=== PATIENT | male | born 1970 | race Caucasian/White ===

== ENCOUNTER 2017-07-03 11:58 | Observation (INO) | payer SELFPAY ==
[2017-07-03 12:29] LABS: #Eosinphils 0.1 thou/uL (0.0-0.7); #Lymphocytes 0.8 thou/uL (1.20-3.40); #Monocytes 0.5 thou/uL (0.11-0.59); #Neutrophils 10.6 thou/uL (1.40-6.50); %Basophils 0.2 % (0.0-1.0); %Eosinophils 1.2 % (0.0-10.0); %Lymphocytes 6.5 % (21.0-51.0); %Monocytes 3.9 % (0.0-10.0); Hematocrit 50.1 % (42.0-52.0); Mean Platelet Volume 6.8 fL (7.4-10.4); Red Blood Cell (RBC) Count 5.33 mill/uL (4.70-6.10); White Blood Cell (WBC) Count 12.1 thou/uL (4.8-10.8)
[2017-07-03 12:55] LABS: ALT (SGPT) 81 U/L (8-55); AST (SGOT) 39 U/L (5-34); Alkaline Phosphatase 103 U/L (40-150); Anion Gap 12 mmol/L (10-20); BUN (Urea Nitrogen) 19 mg/dL (8.9-20.6); Bilirubin, Total 0.8 mg/dL (0.2-1.2); CK (CPK) 73 U/L (30-200); Calc. Creatinine Clearance 0 mL/min (70-130); Calcium 9.6 mg/dL (7.8-10.44); Carbon Dioxide 26 mmol/L (22-29); Chloride 101 mmol/L (98-107); Estimated GFR-MDRD 82; Lipase 113 U/L (8-78); Protein, Total 7.4 g/dL (6.0-8.3)
[2017-07-03 12:57] LABS: Troponin I Less than 0.010 ng/mL (< 0.028)
--- NOTE | 2017-07-03 13:42 | RAD ---
PORTABLE AP CHEST: Date: 07-03-17 History: Chest pain. Comparison: 08-16-12 FINDINGS: Cardiac silhouette and pulmonary vasculature are within normal limits for the portable technique of the study. Again noted are calcified bilateral hilar and mediastinal lymph nodes. Lungs are clear. T here has been no interval change from the prior study. IMPRESSION: No acute cardiopulmonary process. POS: [facility]
--- NOTE | 2017-07-03 16:42 | CT ---
CT ANGIOGRAM CHEST WITH CONTRAST: 07/03/17 HISTORY: Chest pain. COMPARISON: CTA chest 01/17/17. TECHNIQUE: CT angiogram chest performed after the intravenous administration of contrast with 3D rendering prov ided. FINDINGS: The majority of the left lower lobe and lingular left upper lobe embolism have been resorbed. No new segmental pulmonary arterial filling defect. No adenopathy in the chest. Heart size is upper limits of normal. There are coronary artery calcific ations. There are numerous right paratracheal and right hilar calcified lymph nodes. There is a posterior diaphragmatic fat containing hernia. Aortic contour is normal. Skeleton is unremarkable. There is a calcified granuloma in the right middle lobe. There are atelect atic changes in the lung bases. IMPRESSION: 1. Interval resorption of the previously described left sided pulmonary emboli. 2. No new superimposed acute pulmonary embolism. 3. No evidence for pneumonia. POS: [facility]
[2017-07-03] MEDS ORDERED: Nitroglycerin 2% Ointment 1 INCH/1 GM Packet ONE (16:46)
[2017-07-03] MEDS ORDERED: Nitroglycerin 0.4 MG TAB (25 Tab Bottle) ONE (16:46)
--- NOTE | 2017-07-03 16:48 | ULT ---
BILATERAL LOWER EXTREMITY VENOUS DUPLEX ULTRASOUND INCLUDING COLOR AND SPECTRAL DOPPLER IMAGIN07/03/17 HISTORY: 46-year-old male with chest pain as well as pain when walking with a past history of pulmonary embol us as well as deep venous thrombosis. Bilateral lower extremity venous duplex ultrasound examination including color and spectral doppler imaging is performed. Exam performed from groin to ankle including visualized greater saphenous, common femoral, superfici al femoral, profunda femoral, popliteal, trifurcation, and posterior tibial vein regions. Phasic alfredito w noted at all levels with normal compressibility and normal augmentation. No intraluminal thrombus. IMPRESSION: No evidence for deep venous thrombosis. POS: [facility]
[2017-07-03 17:31] LABS: Troponin I 0.012 ng/mL (< 0.028)
[2017-07-03] MEDS ORDERED: Ondansetron ODT 4 MG TAB SL PRN (17:54)
[2017-07-03] MEDS ORDERED: Acetaminophen 325 MG TAB PO PRN ×2 (17:54→19:48)
[2017-07-03] MEDS ORDERED: Ondansetron HCl/PF 4 MG/2 ML Vial IVP PRN ×2 (17:54→19:48)
[2017-07-03 18:30] VITALS: BMI 23.7
[2017-07-03] MEDS ORDERED: Guaifenesin DM 100-10/5 ML UDCUP PO PRN (19:48)
[2017-07-03] MEDS ORDERED: Mag-Al 1200 mg/1200 mg/30 ML UDCUP PO PRN (19:48)
[2017-07-03] MEDS ORDERED: Ibuprofen 200 MG TAB PO PRN (19:48)
[2017-07-03] MEDS: Sodium Chloride 0.9% 1,000 ML IV SCH (20:48)
[2017-07-03] MEDS: Famotidine 20 MG TAB PO SCH (20:49)
[2017-07-03 20:51] LABS: Acetaminophen Less than 6.0 mcg/mL (10.0-30.0); Salicylate Less than 8.0 mg/dL (15.0-30.0)
[2017-07-03 20:55] LABS: Troponin I Less than 0.010 ng/mL (< 0.028)
[2017-07-03] MEDS ORDERED: Nicotine 14 MG PATCH TD SCH (21:00)
--- NOTE | 2017-07-03 22:45 | HP ---
REASON FOR ADMISSION: Likely viral syndrome, possible pancreatitis. HISTORY OF PRESENTING ILLNESS: The patient gives history of having generalized body aches. He also developed nausea and vomiting. He could barely get up this afternoon. He also mentions that he had contact with 3 other family members who have had stomach flu in the house. No cough or fever. He has had some soreness in his chest as well, but no pain as such. No complaints of palpitations, PND or orthopnea. Here in the ER, he has had a CT angio of the chest and ultrasound venous Doppler of the lower extremities done, all of which have been negative for DVT. The patient had a recent history of PE and DVT. He has been off Coumadin from the last 30 days due to financial constraints. PAST MEDICAL AND SURGICAL HISTORY: History of DVT and PE, prior history of kidney stones, tobacco abuse, history of alcohol abuse and history of pancreatitis in the past. CURRENT MEDICATIONS: None. ALLERGIES: No known drug allergies. PERSONAL HISTORY: Patient states he has come down to 2-3 cigarettes a day. Denies alcohol or drugs. Lives with his girlfriend. FAMILY HISTORY: Mom of cancer when he was 3 years old. Has an aunt who had coronary artery disease. Grandparents have had history of coronary artery disease as well. He does not know much about his father. REVIEW OF SYSTEMS: The following complete review of systems was negative, unless otherwise mentioned in the HPI or below: Constitutional: Weight loss or gain, ability to conduct usual activities. Skin: Rash, itching. Eyes: Double vision, pain. ENT/Mouth: Nose bleeding, neck stiffness, pain, tenderness. Cardiovascular: Palpitations, dyspnea on exertion, orthopnea. Respiratory: Shortness of breath, wheezing, cough, hemoptysis, fever or night sweats. Gastrointestinal: Poor appetite, abdominal pain, heartburn, nausea, vomiting, constipation, or diarrhea. Genitourinary: Urgency, frequency, dysuria, nocturia. Musculoskeletal: Pain, swelling. Neurologic/Psychiatric: Anxiety, depression. Allergy/Immunologic: Skin rash, bleeding tendency. PHYSICAL EXAMINATION: GENERAL: The patient is a 46-year-old male who is currently not in any acute distress. VITAL SIGNS: Blood pressure 140/86, pulse 80 per minute, respiratory rate 20 per minute, temperature 97.2 degrees Fahrenheit and saturating 97% on room air. NECK: Supple. No elevated JVD. HEENT: Eyes; extraocular muscles intact. Pupils reacting to light. Oral cavity mucous membranes are moist. No exudates or congestion. CARDIOVASCULAR SYSTEM: S1 and S2 heard. Regular rhythm. RESPIRATORY SYSTEM: Air entry 1+ bilaterally. No rales or rhonchi. ABDOMEN: Soft, bowel sounds heard. No tenderness, rigidity or guarding. EXTREMITIES: No peripheral edema or calf tenderness. VASCULAR SYSTEM: Peripheral pulses 2+ bilateral. No ischemic ulcerations or gangrene. CENTRAL NERVOUS SYSTEM: No gross focal deficit seen. Patient is alert, awake and oriented x3. PSYCHIATRIC SYSTEM: The patient's mood is euthymic. No hallucinations or delusions. LABORATORY AND IMAGING DATA: White count of 12, hemoglobin and hematocrit 16 and 50, platelet count 228 with 88% neutrophils. D-dimer was 0.4. Electrolytes are fairly stable. BUN 19, creatinine 0.9, glucose 130, AST 39, ALT 81, alkaline phosphatase 103, total bilirubin 0.8, albumin is 4.4 and lipase is 113. Troponin x2 is negative. CT angio chest shows interval resorption of previously described left-sided pulmonary emboli, no evidence of pneumonia seen. Ultrasound venous Doppler of both lower extremities done shows no evidence of DVT. EKG done shows normal sinus rhythm at 76 beats per minute. CLINICAL IMPRESSION AND PLAN: The patient will be under observation on telemetry for what appears to be a viral syndrome. The patient has had prior urine drug screens being positive for amphetamine and methamphetamine, although he denies it at present. We will obtain a urine drug screen for now. He will be gently hydrated with normal saline at 100 mL per hour. He will be on aspirin 81 mg and Motrin p.r.n. for pain. Empiric Levaquin in view of a WBC of 12 with 88% neutrophils, although there is no clear source for bacterial infection as such. We will obtain a viral PCR as well. We will await further lab work. If patient is comfortable, he can be discharged anytime. IVIS
[2017-07-04 04:16] LABS: #Eosinphils 0.1 thou/uL (0.0-0.7); #Lymphocytes 1.7 thou/uL (1.20-3.40); #Monocytes 0.5 thou/uL (0.11-0.59); #Neutrophils 4.3 thou/uL (1.40-6.50); %Basophils 0.2 % (0.0-1.0); %Eosinophils 1.6 % (0.0-10.0); %Lymphocytes 25.7 % (21.0-51.0); %Monocytes 7.3 % (0.0-10.0); Mean Platelet Volume 6.9 fL (7.4-10.4); Red Blood Cell (RBC) Count 4.67 mill/uL (4.70-6.10); White Blood Cell (WBC) Count 6.6 thou/uL (4.8-10.8)
[2017-07-04 04:42] LABS: ALT (SGPT) 51 U/L (8-55); AST (SGOT) 21 U/L (5-34); Alkaline Phosphatase 82 U/L (40-150); Anion Gap 10 mmol/L (10-20); BUN (Urea Nitrogen) 15 mg/dL (8.9-20.6); Bilirubin, Total 0.6 mg/dL (0.2-1.2); Calc. Creatinine Clearance 100 mL/min (70-130); Calcium 8.6 mg/dL (7.8-10.44); Carbon Dioxide 26 mmol/L (22-29); Chloride 104 mmol/L (98-107); Estimated GFR-MDRD 78; Globulin 2.5 g/dL (2.4-3.5); Protein, Total 6.1 g/dL (6.0-8.3)
[2017-07-04 06:00] LABS: Amphetamine Not Detected (NotDetected); Methadone Not Detected (NotDetected); Methamphetamine Detected (NotDetected)
[2017-07-04] MEDS: Sodium Chloride 0.9% 1,000 ML IV SCH (06:21)
[2017-07-04] MEDS: Famotidine 20 MG TAB PO SCH (07:54)
[2017-07-04] MEDS ORDERED: Enoxaparin Sodium 40 MG/0.4 ML SYRINGE SC SCH (09:00)
[2017-07-04] MEDS ORDERED: Aspirin 81 mg Enteric Coated Tablet PO SCH (09:00)
[2017-07-04 11:21] VITALS: BP 116/65; TEMP 98
--- NOTE | 2017-07-04 11:28 | DIS ---
DATE OF ADMISSION: 07/03/2017 DATE OF DISCHARGE: 07/04/2017 DISCHARGE DIAGNOSES: 1. Viral syndrome. 2. Methamphetamine abuse. 3. Pancreatitis, mild, resolving. 4. Leukocytosis, resolved. 5. History of pulmonary embolus, resolved. 6. Tobacco abuse. CONSULTATIONS: None. PERTINENT LAB AND X-RAY FINDINGS: AST ranged between 21-39, ALT ranged between 51-81. Lipase 113. Troponin I negative x3. Albumin ranged between 3.6-4.4. CBC showed a white blood cell count rangi ng between 6.6-12.1. Urine drug screen positive for methamphetamines. Plasma alcohol level less th an 10. Respiratory virus panel dated 07/03/2017 negative. Portable chest x-ray dated 07/03/2017 sh owed no acute cardiopulmonary process. CT angiogram of the chest dated 07/03/2017 showed interval r esolution of previously noted left-sided pulmonary emboli. No evidence for pneumonia. HOSPITAL COURSE: The patient was observed on the telemetry unit after initially presenting with gen eralized bodyaches with some nausea and vomiting. The patient underwent general metabolic evaluatio n as well as chest imaging showing no evidence of acute pneumonia or pulmonary process. The patient 's previously noted left-sided pulmonary emboli resolved. The patient was noted with mild lipase el evation to 113 with questionable mild pancreatitis. The patient was also positive for methamphetami prisca on urine drug screen contributing to presentation. Overall, the patient remained clinically sta ble under observation with resolution of symptoms by the time of discharge. The patient was tolerat ing regular oral intake, ambulating without assistance or difficulty with stable vital signs at the time of discharge. The patient ready for discharge on 07/04/2017. DISCHARGE MEDICATIONS: Aspirin enteric coated 81 mg 1 tab p.o. daily. FOLLOWUP: Patient may follow up with local [facility] clinic in the [place], [place] area on disc harge. CONDITION ON DISCHARGE: Stable. ACTIVITY: Ad kim. DIET: Regular. . CODE STATUS: Full. DISPOSITION: Home on 07/04/2017.
--- NOTE | 2017-07-07 15:20 | EKG ---
Test Reason : CHEST PAIN Blood Pressure : / mmHG Vent. Rate : 076 BPM Atrial Rate : 076 BPM P-R Int : 144 ms QRS Dur : 114 ms QT Int : 372 ms P-R-T Axes : 015 -48 016 degrees QTc Int : 418 ms Normal sinus rhythm Left axis deviation Pulmonary disease pattern No STEMI Abnormal ECG Confirmed by EMILIANO HOWARD M.D. ([id number]), news copy editor JOSE MAYS ([id number]) on 07/07/2017 3:20:47 PM Referred By: Confirmed By:EMILIANO HOWARD M.D.
== END 2017-07-04 12:53 | disposition home or self-care (01) ==
LOC: ERS 11:58 → 2SW 17:43
PROVIDERS: ADMIT Internal Medicine; ATTEND Internal Medicine
DX: B34.9 Viral infection, unspecified (principal); F15.10 Other stimulant abuse, uncomplicated; K85.90 Acute pancreatitis without necrosis or infection, unspecified; D72.829 Elevated white blood cell count, unspecified; F17.210 Nicotine dependence, cigarettes, uncomplicated; Z79.82 Long term (current) use of aspirin; Z86.711 Personal history of pulmonary embolism; Z86.718 Personal history of other venous thrombosis and embolism; Z87.442 Personal history of urinary calculi; Z86.59 Personal history of other mental and behavioral disorders; Z80.9 Family history of malignant neoplasm, unspecified
CPT/HCPCS: 36415; 71010; 71275; 80053; 80306; 80307; 82553; 83690; 84484; 85025; 85379; 87633; 93005; 93970; 96360; 96361; 96372; G0378; J1650

== ENCOUNTER 2020-02-29 19:26 | Inpatient (IN) | payer OTHER, SELFPAY ==
[~2020-02-29 19:26] MED LIST: Iopamidol-370 76% 500 ML 1 ML ONE
[2020-02-29] MEDS ORDERED: Ketorolac Tromethamine 30 MG/ML VIAL ONE (19:47)
[2020-02-29 19:50] LABS: #Eosinphils 0.2 thou/uL (0.0-0.7); #Lymphocytes 3.1 thou/uL (1.20-3.40); #Monocytes 0.7 thou/uL (0.11-0.59); #Neutrophils 4.3 thou/uL (1.40-6.50); %Basophils 0.5 % (0.0-1.0); %Eosinophils 2.9 % (0.0-10.0); %Lymphocytes 37.3 % (21.0-51.0); %Neutrophils 51.4 % (42.0-75.0); Hemoglobin 14.1 g/dL (14.0-18.0); Mean Corpuscular HGB CONC 34.4 g/dL (32.0-36.0); Mean Corpuscular Hemoglobin 31.6 pg (27.0-31.0); Mean Corpuscular Volume 91.9 fL (78.0-98.0); Platelet Count 235 thou/uL (130-400); RBC Distribution Width 11.3 % (11.5-14.5); Red Blood Cell (RBC) Count 4.45 mill/uL (4.70-6.10); White Blood Cell (WBC) Count 8.4 thou/uL (4.8-10.8)
--- NOTE | 2020-02-29 20:10 | CT ---
CTA Angio Chest W WO Con 02/29/2020 7:33 PM Indication: Dyspnea with history of DVT Technique: Multiple CTA images were obtained of the thorax with IV contrast. 3-D rendering: MIP lee nstructed images were created and reviewed. Comparison: CT PE examination dated 07/03/2017 Findings: Pulmonary arteries: There is occlusive pulmonary embolus seen within the segmental branches of the p osterior medial left lower lobe . There is also partially occlusive thrombus seen within the segmental branches of the anterior and posterior lateral left lower lobe. There is a partially occlus pan thrombus within the anterior segmental pulmonary artery the left upper lobe. There is partially occlusive thrombus seen within the posterior medial segmental pulmonary artery or the right lower lob e. There is no evidence suggest right heart strain. Heart and Aorta: There are coronary artery and thoracic aortic calcifications. Mediastinum:Calcified lymph nodes are present within the mediastinum. Lungs:There are areas of subsegmental volume loss involving both lung bases. There is a calcified gra nuloma the right upper lobe. There is a fat-containing left Bochdalek hernia. Pleural space: Clear. Upper Abdomen: No acute abnormality. Osseous Structures: No acute osseous abnormality. Soft tissues:No abnormality. Other findings:None. Impression: Positive pulmonary embolus scan as above. Findings called to Dr. Georges at 8:04 PM on February 21, 2020.
[2020-02-29] MEDS ORDERED: Enoxaparin Sodium 80 MG/0.8 ML SYRINGE ONE (20:12)
[2020-02-29 20:17] LABS: ALT (SGPT) 37 U/L (8-55); AST (SGOT) 26 U/L (5-34); Alkaline Phosphatase 122 U/L (40-110); Anion Gap 14 mmol/L (10-20); BUN (Urea Nitrogen) 14 mg/dL (8.9-20.6); Bilirubin, Total 0.3 mg/dL (0.2-1.2); Calc. Creatinine Clearance 0 mL/min (70-130); Calcium 9.4 mg/dL (7.8-10.44); Carbon Dioxide 24 mmol/L (22-29); Chloride 105 mmol/L (98-107); Estimated GFR-MDRD 85; Globulin 3.3 g/dL (2.4-3.5); Glucose 86 mg/dL (70-105); Potassium 4.2 mmol/L (3.5-5.1); Protein, Total 7.3 g/dL (6.0-8.3); Sodium 139 mmol/L (136-145)
[2020-02-29 22:32] VITALS: BMI 22.3
[2020-03-01] MEDS: Sodium Chloride 0.9% 1,000 ML IV SCH ×2 (00:38→13:20)
--- NOTE | 2020-03-01 00:38 | PDOC.HHP ---
Hospitalist HPI - History of Present Illness Shortness of breath and chest pain History of Present Illness: Patient presents with complaints of shortness of breath for the last two days which was notably worse this morning when he woke up. He had difficulty taking a deep breath in and had chest pain on inspiration with discomfort between his shoulder blades. He reports noting SOB with exertion since 2 weeks ago and has felt generally unwell with diffuse muscle aches/pains for the last couple of weeks as well. States he has been sedentary and sleeping a lot in the last week. He had nausea but thats improved and now his appetite is coming back. He does not know if he has had any fevers. At present he is feeling better than he did this morning. Denies any cough/hemoptysis. No lightheadedness or dizziness. He has a known history of PEs but has been off of anticoagulation since 2016. ED Course: He had labs done that were unremarkable. A CTA of his chest showed a PE (occlusive thrombus within segmental branches of the posterior medial left lower lob. Partially occlusive thrombus within segmental branches of the anterior and posterior lateral left lower lobs. Partially occlusive thrombus within the anterior segmental pulmonary artery in the left upper lobe. Partially occlusive thrombus within the posterior medial segmental artery of the right lower lobe. No evidence of heart strain. Calcified lymph nodes within the mediastinum. Hospitalist ROS - Review of Systems Constitutional: reports: sweats, malaise. denies: fever, chills, weakness, other Eyes: denies: pain, vision change, conjunctivae inflammation, eyelid inflammation, redness, other ENT: denies: ear pain, ear discharge, nose pain, nose discharge, nose congestion , mouth pain, mouth swelling, throat pain, throat swelling, other Respiratory: reports: shortness of breath, SOB with excertion, pleuritic pain Cardiovascular: reports: chest pain, orthopnea. denies: palpitations, paroxysmal noc. dyspnea, edema, light headedness, other Gastrointestinal: denies: nausea, vomiting, abdominal pain, diarrhea, constipation, melena, hematochezia, other Genitourinary: denies: dysuria, frequency, incontinence, hematuria, retention, other Musculoskeletal: reports: neck pain (soft tissue neck discomfort, no stiffness, no pain with ROM). denies: shoulder pain, arm pain, back pain, hand pain, leg pain, foot pain, other Skin: denies: rash, lesions, juliane, bruising, other Neurological: denies: weakness, numbness, incoordination, change in speech, confusion, seizures, other Hospitalist History - Past Medical History Source: patient Pulmonary: reports: pulmonary embolism Renal/: reports: Other (nephrolithiasis) - Family History Family History: reports: no pertinent history - Social History Smoking Status: Current every day smoker Alcohol: reports: None, Heavy (in the past) Drugs: reports: methamphetamine (history) Living Situation: Alone Activity level: independent ambulation - Exam General Appearance: NAD, awake alert Eye: PERRL, anicteric sclera ENT: normocephalic atraumatic, no oropharyngeal lesions, moist mucosa Neck: supple, symmetric, no JVD, no thyromegaly, no lymphadenopathy, no carotid bruit Heart: RRR, no murmur, no gallops, no rubs, normal peripheral pulses Respiratory: CTAB, no wheezes, no rales, no ronchi, normal chest expansion, no tachypnea, normal percussion Gastrointestinal: soft, non-tender, non-distended, normal bowel sounds, no palpable masses, no hepatomegaly, no splenomegaly, no bruit Extremities: no cyanosis, no clubbing, no edema Skin: normal turgor, no lesions, no rashes Neurological: cranial nerve grossly intact, normal sensation to touch, no weakness, no focal deficits, no new deficit Musculoskeletal: normal tone, normal strength, no muscle wasting Psychiatric: normal affect, normal behavior, A&O x 3 Hospitalist Results - Labs Result Diagrams: 02/29/20 19:41 02/29/20 19:40 Lab results: WBC 8.4 thou/uL (4.8-10.8) 02/29/20 19:41 Hgb 14.1 g/dL (14.0-18.0) 02/29/20 19:41 Hct 40.9 % (42.0-52.0) L 02/29/20 19:41 MCV 91.9 fL (78.0-98.0) 02/29/20 19:41 Plt Count 235 thou/uL (130-400) 02/29/20 19:41 Neutrophils % 51.4 % (42.0-75.0) 02/29/20 19:41 Sodium 139 mmol/L (136-145) 02/29/20 19:40 Potassium 4.2 mmol/L (3.5-5.1) 02/29/20 19:40 Chloride 105 mmol/L (98-107) 02/29/20 19:40 Carbon Dioxide 24 mmol/L (22-29) 02/29/20 19:40 BUN 14 mg/dL (8.9-20.6) 02/29/20 19:40 Creatinine 0.94 mg/dL (0.7-1.3) 02/29/20 19:40 Glucose 86 mg/dL (70-105) 02/29/20 19:40 Lactic Acid 1.0 mmol/L (0.5-2.2) 02/29/20 21:40 Calcium 9.4 mg/dL (7.8-10.44) 02/29/20 19:40 Total Bilirubin 0.3 mg/dL (0.2-1.2) 02/29/20 19:40 AST 26 U/L (5-34) 02/29/20 19:40 ALT 37 U/L (8-55) 02/29/20 19:40 Alkaline Phosphatase 122 U/L (40-110) H 02/29/20 19:40 Troponin I 0.027 ng/mL (< 0.028) 02/29/20 22:39 B-Natriuretic Peptide 16.5 pg/mL (0-100) 02/29/20 19:40 Serum Total Protein 7.3 g/dL (6.0-8.3) 02/29/20 19:40 Albumin 4.0 g/dL (3.5-5.0) 02/29/20 19:40 - Radiology Interpretation CT scan - chest Status: report reviewed by tx Hospitalist H&P A/P - Problem (1) Pulmonary embolism Code(s): I26.99 - OTHER PULMONARY EMBOLISM WITHOUT ACUTE COR PULMONALE Status : Acute Qualifiers: Chronicity: acute (2) Chest pain Code(s): R07.9 - CHEST PAIN, UNSPECIFIED Status: Acute (3) Malaise Code(s): R53.81 - OTHER MALAISE Status: Acute (4) Swollen neck Code(s): R22.1 - LOCALIZED SWELLING, MASS AND LUMP, NECK Status: Acute (5) Suspected COVID-19 virus infection Code(s): Z20.828 - CONTACT W AND EXPOSURE TO OTH VIRAL COMMUNICABLE DISEASES Status: Acute (6) Loss of smell Code(s): R43.0 - ANOSMIA Status: Acute (7) History of substance abuse Code(s): F19.11 - OTHER PSYCHOACTIVE SUBSTANCE ABUSE, IN REMISSION Status: Chronic (8) History of pulmonary embolism Code(s): Z86.711 - PERSONAL HISTORY OF PULMONARY EMBOLISM Status: Acute - Plan Plan: Continue Lovenox. cardiac monitoring. Continue to trend troponins. Pulmonary consult has been requested. Monitor O2 sats. Echo ordered. COVID testing done. Baseline chest xray ordered. UA/UDS ordered. Patient with bilateral neck swelling, no swallowing difficulties. Consider soft tissue neck imaging. GI prophylaxis with famotidine. CODE STATUS FULL.
[2020-03-01] MEDS: Ketorolac Tromethamine 30 MG/ML VIAL IVP SCH ×5 (00:39→23:47)
[2020-03-01 04:50] LABS: #Eosinphils 0.3 thou/uL (0.0-0.7); #Lymphocytes 3.5 thou/uL (1.20-3.40); #Monocytes 0.7 thou/uL (0.11-0.59); %Basophils 0.2 % (0.0-1.0); %Lymphocytes 41.1 % (21.0-51.0); %Monocytes 7.9 % (0.0-10.0); %Neutrophils 47.8 % (42.0-75.0); Hemoglobin 12.8 g/dL (14.0-18.0); Mean Corpuscular HGB CONC 34.4 g/dL (32.0-36.0); Mean Corpuscular Hemoglobin 31.9 pg (27.0-31.0); Mean Corpuscular Volume 92.6 fL (78.0-98.0); Mean Platelet Volume 7.1 fL (7.4-10.4); Platelet Count 204 thou/uL (130-400); RBC Distribution Width 11.1 % (11.5-14.5); Red Blood Cell (RBC) Count 4.01 mill/uL (4.70-6.10); White Blood Cell (WBC) Count 8.4 thou/uL (4.8-10.8)
[2020-03-01 05:02] LABS: ALT (SGPT) 44 U/L (8-55); AST (SGOT) 31 U/L (5-34); Albumin 3.5 g/dL (3.5-5.0); Alkaline Phosphatase 108 U/L (40-110); Anion Gap 11 mmol/L (10-20); BUN (Urea Nitrogen) 15 mg/dL (8.9-20.6); Bilirubin, Total 0.3 mg/dL (0.2-1.2); Calc. Creatinine Clearance 96 mL/min (70-130); Calcium 8.7 mg/dL (7.8-10.44); Carbon Dioxide 26 mmol/L (22-29); Chloride 105 mmol/L (98-107); Estimated GFR-MDRD 84; Globulin 3.1 g/dL (2.4-3.5); Glucose 129 mg/dL (70-105); Potassium 3.8 mmol/L (3.5-5.1); Protein, Total 6.6 g/dL (6.0-8.3); Sodium 138 mmol/L (136-145)
[2020-03-01 05:44] LABS: Bacteria/HPF None Seen HPF (None Seen); Bilirubin Negative (Negative); Blood, Urine Negative (Negative); Clarity Clear (Clear); Glucose, Urine (Dipstick) Normal (Negative); Leukocyte Negative Leu/uL (Negative); Nitrite Negative (Negative); Protein, Urine (Dipstick) 10 mg/dL (Neg-Trace); RBC/HPF 0-3 HPF (0-3); Squamous Epithelial None Seen HPF (0-3); Urobilinogen Normal mg/dL (Less than 2); WBC/HPF 0-3 HPF (0-3)
[2020-03-01 05:47] LABS: Urine Culture Reflex No No
[2020-03-01 05:52] LABS: Amphetamine Detected (NotDetected); Medtox Reader # READER 1; Methamphetamine Detected (NotDetected)
[2020-03-01 05:53] LABS: Barbiturates Screen Detected (NotDetected); Benzodiazepine Screen Not Detected (NotDetected); Cocaine Metabolite Screen Not Detected (NotDetected); Medtox Control Line Valid? VALID (VALID); Methadone Not Detected (NotDetected); Opiate Screen Not Detected (NotDetected); Oxycodone Screen Not Detected (NotDetected); Phencyclidine (PCP) Not Detected (NotDetected); THC/Cannabinoid Screen Not Detected (NotDetected); Tricyclic Screen Not Detected (NotDetected)
[2020-03-01] MEDS: Famotidine 20 MG TAB PO SCH ×2 (08:31→20:07)
[2020-03-01] MEDS: Enoxaparin Sodium 80 MG/0.8 ML SYRINGE SC SCH ×2 (08:32→20:08)
--- NOTE | 2020-03-01 10:08 | RAD ---
PORTABLE CHEST: INDICATION: Shortness of breath. Pulmonary embolus diagnosed on CT scan from yesterday. COMPARISON: 07/03/2017. FINDINGS: There is bibasilar atelectasis and/or infiltrates corresponding to yesterday's CT findings. The uppe r lung gale are clear. Heart and mediastinum unremarkable. IMPRESSION: Bibasilar atelectasis and/or infiltrates corresponding to yesterday's CT. POS: [facility]
[2020-03-01 14:15] LABS: SARS-CoV-2 MS2 Positive; SARS-CoV-2 N Gene Positive; SARS-CoV-2 S Gene Positive; SARS-CoV-2 orf1ab Positive
--- NOTE | 2020-03-01 14:41 | PDOC.HOSPP ---
- Subjective Encounter Date: 03/01/20 Encounter Time: 10:30 Subjective: still has some pleuritic chest pain but not as bad as yesterday no sob is amb in room says he stopped coumadin in 2016 after taking it for 4 months when he started having easy bleeds from skin, was not following for INR's during that time. Has no PCP - Objective Vital Signs & Weight: Vital Signs (12 hours) Temp Pulse Resp BP Pulse Ox 03/01/20 12:00 99.2 F 72 16 130/80 03/01/20 08:00 98.8 F 71 21 H 118/74 97 03/01/20 05:26 98.8 F 68 20 136/81 97 Weight Weight 160 lb 4.8 oz Result Diagrams: 03/01/20 04:29 03/01/20 04:29 Hospitalist ROS - Medication Medications: Active Medications Generic Name Dose Route Start Last Admin Trade Name Freq PRN Reason Stop Dose Admin Enoxaparin Sodium 70 mg 03/01/20 09:00 03/01/20 08:32 Lovenox SC 70 mg 0900,2100 MARION Administration Famotidine 20 mg 03/01/20 09:00 03/01/20 08:31 Pepcid PO 20 mg BID MARION Administration Sodium Chloride 1,000 mls @ 65 mls/hr 02/29/20 21:45 03/01/20 13:20 Normal Saline 0.9% IV 1,000 mls .[id number] MARION Administration Ketorolac Tromethamine 15 mg 02/29/20 23:59 03/01/20 11:57 Toradol IVP 03/05/20 23:59 15 mg Q6HR MARION Administration Sodium Chloride 10 ml 02/29/20 21:36 03/01/20 08:33 Flush - Normal Saline IVF 10 ml Q12HR PRN Administration Saline Flush - Exam General Appearance: awake alert Eye: PERRL, anicteric sclera ENT: no oropharyngeal lesions, moist mucosa Neck: supple, no JVD Heart: RRR, no murmur Respiratory: no wheezes, no rales Gastrointestinal: soft, non-tender, non-distended, normal bowel sounds Extremities: no cyanosis, no edema Neurological: cranial nerve grossly intact, no focal deficits Hosp A/P (1) Chest pain Code(s): R07.9 - CHEST PAIN, UNSPECIFIED Status: Acute Qualifiers: Chest pain type: chest pain on breathing Qualified Code(s): R07.1 - Chest pain on breathing; R07.81 - Pleurodynia (2) History of substance abuse Code(s): F19.11 - OTHER PSYCHOACTIVE SUBSTANCE ABUSE, IN REMISSION Status: Chronic (3) Pulmonary embolism Code(s): I26.99 - OTHER PULMONARY EMBOLISM WITHOUT ACUTE COR PULMONALE Status : Acute Qualifiers: Chronicity: acute (4) Tobacco abuse Code(s): Z72.0 - TOBACCO USE Status: Chronic - Plan uds is +ve for meth, barbiturates covid 19 pcr is +ve on 2 lts NC, may taper and dc if he saturates well h/o prior PE in 2016, non compliance with coumadin and inr checks is on lovenox q12h pulm consultation to ambulate as tolerated
[2020-03-02] MEDS: Acetaminophen 325 MG TAB PO PRN ×2 (00:45→21:43)
[2020-03-02] MEDS ORDERED: traMADol HCl 50 MG TAB PO SCH ×2 (02:15→21:30)
[2020-03-02] MEDS: Sodium Chloride 0.9% 1,000 ML IV SCH ×2 (04:16→21:44)
[2020-03-02] MEDS: Ketorolac Tromethamine 30 MG/ML VIAL IVP SCH ×2 (05:41→11:57)
[2020-03-02] MEDS: Famotidine 20 MG TAB PO SCH ×2 (07:43→20:19)
[2020-03-02] MEDS: Enoxaparin Sodium 80 MG/0.8 ML SYRINGE SC SCH (07:43)
[2020-03-02 11:36] LABS: Hemoglobin 11.2 g/dL (14.0-18.0); Platelet Count 196 thou/uL (130-400)
--- NOTE | 2020-03-02 14:15 | PDOC.HOSPP ---
- Subjective Encounter Date: 03/02/20 Encounter Time: 09:15 Subjective: No sob or palp - Objective Vital Signs & Weight: Vital Signs (12 hours) Temp Pulse Resp BP Pulse Ox 03/02/20 12:00 97.2 F L 66 17 98/59 L 96 03/02/20 08:00 97.4 F L 59 L 18 94/56 L 98 03/02/20 02:35 98.5 F 60 18 103/69 96 Weight Weight 160 lb 4.8 oz I&O: 03/01/20 03/02/20 03/03/20 06:59 06:59 06:59 Intake Total 3242.5 Output Total 1999 Balance 1242.5 Result Diagrams: 03/02/20 11:03 03/01/20 04:29 Hospitalist ROS - Medication Medications: Active Medications Generic Name Dose Route Start Last Admin Trade Name Freq PRN Reason Stop Dose Admin Acetaminophen 650 mg 03/02/20 00:00 03/02/20 00:45 Tylenol PO 650 mg Q4H PRN Administration Headache/Fever or Pain Famotidine 20 mg 03/01/20 09:00 03/02/20 07:43 Pepcid PO 20 mg BID MARION Administration Sodium Chloride 1,000 mls @ 65 mls/hr 02/29/20 21:45 03/02/20 04:16 Normal Saline 0.9% IV 1,000 mls .[id number] MARION Administration Sodium Chloride 10 ml 02/29/20 21:36 03/01/20 08:33 Flush - Normal Saline IVF 10 ml Q12HR PRN Administration Saline Flush - Exam General Appearance: awake alert Eye: PERRL, anicteric sclera ENT: no oropharyngeal lesions, moist mucosa Neck: supple, no JVD Heart: RRR, no murmur Respiratory: no wheezes, no rales Gastrointestinal: soft, non-tender, non-distended, normal bowel sounds Extremities: no cyanosis, no edema Neurological: cranial nerve grossly intact, no focal deficits Psychiatric: normal affect, A&O x 3 Hosp A/P (1) Chest pain Code(s): R07.9 - CHEST PAIN, UNSPECIFIED Status: Acute Qualifiers: Chest pain type: chest pain on breathing Qualified Code(s): R07.1 - Chest pain on breathing; R07.81 - Pleurodynia (2) History of substance abuse Code(s): F19.11 - OTHER PSYCHOACTIVE SUBSTANCE ABUSE, IN REMISSION Status: Chronic (3) Pulmonary embolism Code(s): I26.99 - OTHER PULMONARY EMBOLISM WITHOUT ACUTE COR PULMONALE Status : Acute Qualifiers: Chronicity: acute (4) Tobacco abuse Code(s): Z72.0 - TOBACCO USE Status: Chronic (5) COVID-19 virus infection Code(s): U07.1 - COVID-19 Status: Acute - Plan uds is +ve for meth, barbiturates covid 19 pcr is +ve on 2 lts NC, may taper and dc if he saturates well h/o prior PE in 2016, non compliance with coumadin and inr checks start eliquis, will need help with meds on dc, CM consultation pulm consultation pending to ambulate as tolerated
[2020-03-02] MEDS: Apixaban 5 MG TAB PO SCH (20:19)
--- NOTE | 2020-03-02 20:53 | CON ---
DATE OF CONSULTATION: 03/02/2020 REASON FOR CONSULTATION: Pulmonary embolism and COVID pneumonia. HISTORY OF PRESENT ILLNESS: A 49-year-old with history of methamphetamine use, prior episode of pancreatitis, prior episode of pulmonary embolism who about 6 days before admission, he reports that he passed out in the patio of his house. He lives with his girlfriend and her 5 children and because of the rates of COVID in the area of his residence, he decided to go to a motel and quarantine himself and then he started developing left-sided chest pain, which was pleuritic type 2, so he came to the hospital. A CT angiogram demonstrated a segmental embolism. He also has had a positive COVID test. Right now, he is having pleuritic pain in the left side, not as intense as yesterday and otherwise feels comfortable, is not dyspneic. No headaches. No visual symptoms. He does have an anosmia. No sore throat or dental pain. No back pain. No abdominal pain. No genitourinary symptoms. No joint symptoms. PAST MEDICAL HISTORY: Methamphetamine use, pulmonary embolism, deep vein thrombosis. PAST SURGICAL HISTORY: Negative. SOCIAL HISTORY: He works with [employer]. He lives in [place]. Smokes daily and does not drink alcoholic beverages and is reportedly abstinent from methamphetamine for a few months. ALLERGIES: NO KNOWN DRUG ALLERGIES. FAMILY HISTORY: Noncontributory. CURRENT MEDICATIONS: 1. Tylenol. 2. Eliquis. 3. Pepcid. 4. Electrolytes. PHYSICAL EXAMINATION: VITAL SIGNS: T-max 100.8, BP 98/59, pulse 66, respirations 17, O2 saturation 96% on 1 liter. GENERAL: He appears in no distress except when he takes a deep breath when he has a pleuritic pain. HEENT: Ocular movements conjugate. Oral cavity with quite a few teeth in place with some decay, but not as much as I expected. Oral mucosa is normal. NECK: Supple. No jugular vein distention. LUNGS: Symmetric clear breath sounds. No wheezing. S1, S2. Regular rate. No S3 or S4. ABDOMEN: Soft, not distended or tender. No ascites. No bladder distention. EXTREMITIES: No edema. Moves extremities equally. Plantar responses are flexor. Pulses are 1+ in dorsalis pedis. NEUROLOGIC: Nonfocal. His speech is normal. Speaks in full sentences and appears comfortable at rest. LABORATORY DATA: Remarkable for alkaline phosphatase of 122. White cell count is 8.4, hemoglobin 12.8, platelets 204. Toxic screen with amphetamines, barbiturates and COVID-19 is positive. Respiratory virus PCR was negative. IMAGING: Chest CT angiogram with occlusive pulmonary embolism in the left lower lobe segmental branch. ASSESSMENT: History of methamphetamine use, prior episode of pulmonary embolism with now recurrence, COVID infection. DISCUSSION: This should be the 5th or 6th day of illness of his COVID infection. Thus far he seems to be having a mild course except for the pulmonary embolism. This probably is unrelated to his COVID infection, although it has been described to be associated with thromboembolic disease, but in his case he does have likely alternate predisposing condition in view of the past history, so I would not recommend any antiviral or anti-inflammatory treatment at this point, just supportive care and continue Eliquis. Discharge planning whenever he is off oxygen and feeling comfortable once the Eliquis kicks in. Job ID: [id number]
[2020-03-03] MEDS: Acetaminophen 325 MG TAB PO PRN (07:52)
[2020-03-03] MEDS: Apixaban 5 MG TAB PO SCH (07:52)
[2020-03-03] MEDS: Famotidine 20 MG TAB PO SCH (07:52)
[2020-03-03] MEDS: Sodium Chloride 0.9% 1,000 ML IV SCH (08:30)
[2020-03-03 11:18] VITALS: BP 133/79; TEMP 98.7
--- NOTE | 2020-03-03 18:27 | DIS ---
DATE OF ADMISSION: 02/29/2020 DATE OF DISCHARGE: 03/03/2020 DISCHARGE DISPOSITION: To home. PRIMARY DISCHARGE DIAGNOSES: Pulmonary embolism, COVID-19 PCR being positive; substance abuse; tobacco abuse. PROCEDURES DONE DURING HOSPITALIZATION: CT angio chest done on the day of admission showed pulmonary embolus. Hemoglobin and hematocrit 11 and 33, platelet count 196. COVID-19 PCR was positive on 02/29/2020. Urine drug screen was positive for barbiturates, amphetamine, and methamphetamine. BUN 15, creatinine 0.9. AST and ALT 31 and 44, alkaline phosphatase 108. Troponin x2 negative. Albumin is 3.5. BNP was 16. White count of 8 with 47% neutrophils and 41% lymphocytes. DISCHARGE MEDICATIONS: 1. Eliquis 10 mg twice daily for 5 days, then 5 mg p.o. twice daily thereafter for PE. 2. Albuterol inhaler q.6 hourly p.r.n. ALLERGIES: NO KNOWN DRUG ALLERGIES. INPATIENT CONSULT: Dr. Melvin for Infectious Disease. BRIEF COURSE DURING HOSPITALIZATION: The patient initially got admitted on the with complaints of chest pain. He has had a CT angio chest done on the day of admission, which was positive for PE. In view of shortness of breath and chest pain, COVID-19 PCR was also done, which came back positive. His CT angio chest did not reveal any infiltrates. The patient did not require any oxygen after the initial 12 hours. He was placed on Lovenox, which has been transitioned to Eliquis for PE. The patient is ambulating and eating well in the room. The patient also lost his wallet along with all his identities. He was initially staying at [place] [id number] and lost his job and did not have a way to pay for further stay upon discharge. In view of this, case management consultation was requested. [facility] was contacted, and they are able to pay for a week for him at the same mot. EMS Services are being used to transfer the patient back to the [facility]. He is hemodynamically stable and has had consultation with Dr. Melvin during his stay here. He is cleared for discharge. The patient was counseled with regard to compliance with Eliquis. He was given assistance to get the medication at [facility]. His pulmonary embolus is unlikely to be related to COVID-19. Please note I have seen and examined the patient on the day of discharge. Job ID: [id number]
== END 2020-03-03 16:57 | disposition home or self-care (01) | DRG 177 ==
LOC: ERS 19:26 → 2SW 22:06 → 2NO 22:26 → 2SW 22:56
PROVIDERS: ADMIT Internal Medicine; ATTEND Internal Medicine
PROC: 8E0ZXY6 Isolation (ICD-10-PCS; principal; 2020-02-29)
DX: U07.1 COVID-19 (principal); I26.99 Other pulmonary embolism without acute cor pulmonale; F17.210 Nicotine dependence, cigarettes, uncomplicated; R53.81 Other malaise; R43.0 Anosmia; F19.11 Other psychoactive substance abuse, in remission; Z86.711 Personal history of pulmonary embolism; Z91.14 Patient's other noncompliance with medication regimen; Z79.899 Other long term (current) drug therapy; Z86.718 Personal history of other venous thrombosis and embolism; Z79.01 Long term (current) use of anticoagulants
CPT/HCPCS: 36415; 71045; 71275; 80053; 80306; 81001; 83605; 83735; 83880; 84484; 85014; 85018; 85025; 85049; 87633; 87635; 96372; 96374; J1650; J1885; Q9967; U0003

== ENCOUNTER 2025-07-01 12:16 | Emergency (ER) | payer SELFPAY ==
[2025-07-01] MEDS ORDERED: Acetaminophen 500 MG TAB ONE (12:25)
[2025-07-01] MEDS ORDERED: Dexamethasone 10 MG/ML VIAL ONE (13:23)
== END 2025-07-01 13:29 | disposition home or self-care (01) ==
LOC: ERS 12:16
DX: J02.9 Acute pharyngitis, unspecified (principal); F17.210 Nicotine dependence, cigarettes, uncomplicated; Z86.718 Personal history of other venous thrombosis and embolism
CPT/HCPCS: 87081; 87428; 87430; 99284; J1100